=== PATIENT | male | born 1965 | race Caucasian/White ===

== ENCOUNTER → 2024-10-26 | Outpatient (CLI) | payer BC, SELFPAY ==
--- NOTE | 2024-10-26 09:00 | RAD_ITS ---
PROCEDURE: FOOT MIN 3 VIEWS 10/26/2024 REASON FOR EXAM: R/O FX OF 5TH TOE TECHNIQUE: FOOT MIN 3 VIEWS Laterality: Right foot. COMPARISON: None FINDINGS: Bones: There is an undisplaced transverse fracture through the midportion of the proximal phalanx of the 5th toe. Joints: Joint space narrowing at the 1st metatarsophalangeal joint. Soft tissues: Soft tissue swelling. Other: RAD/Foot min 3 Views IMPRESSION: Nondisplaced transverse fracture through the midportion of the proximal phalanx of the 5th toe with overlying soft tissue swelling. Reading Location: [facility]
== END | disposition home or self-care (01) ==
PROVIDERS: PCP Family Medicine; Referring Provider Nurse Practitioner Family; Visit Provider Nurse Practitioner Family
DX: S93.504A Unspecified sprain of right lesser toe(s), initial encounter (principal)
CPT/HCPCS: 73630